=== PATIENT | male | born 1995 | race Caucasian/White ===

== ENCOUNTER 2017-11-27 14:12 | Inpatient (IN) | payer BC, OTHER ==
--- NOTE | 2017-11-27 14:32 | EDPHY ---
H & P Stated Complaint: M1 Time Seen by Provider: 11/27/17 14:31 - Medical/Surgical History Hx Asthma: No Hx Chronic Respiratory Disease: No Hx Diabetes: No Hx Cardiac Disease: No Hx Renal Disease: No Hx Cirrhosis: No Hx Alcoholism: No Hx HIV/AIDS: No Hx Splenectomy or Spleen Trauma: No Other PMH: denies - Social History Smoking Status: Never smoked Constitutional: Initial Vital Signs Temperature (C) 36.7 C 11/27/17 14:15 Heart Rate 120 H 11/27/17 14:15 Respiratory Rate 18 11/27/17 14:15 Blood Pressure 147/116 H 11/27/17 14:15 O2 Sat (%) 97 11/27/17 14:15 O2 Delivery Mode Room Air Allergies/Adverse Reactions: No Known Allergies Allergy (Unverified 11/27/17 14:15) Home Medications: Medication Instructions Recorded NK [No Known Home Meds] 06/22/14 Medical Decision Making ED Course/Re-evaluation: CHIEF COMPLAINT: Psychiatric evaluation HISTORY OF PRESENT ILLNESS: must have 4 elements: Location, Quality, Severity , Duration, Timing, Context, Modifying Factors, Associated Signs and Symptoms REVIEW OF SYSTEMS: A 10 point review of systems was performed and is negative with the exception of the elements mentioned in the history of present illness. PHYSICAL EXAM: General Appearance: Alert, well hydrated, appropriate, and non-toxic appearing. Head: Atraumatic without scalp tenderness or obvious injury Eyes: Pupils equal, round, reactive to light and accommodation, EOMI, no trauma , no injection. Ears: Clear bilaterally, no perforation, normal landmarks Nose: Atraumatic, no rhinorrhea, clear. Throat: There is no erythema or exudates, no lesions, normal tonsils, mucus membranes moist. Neck: Supple, 2+ carotid upstroke, nontender, no lymphadenopathy. Respiratory: No retractions, no distress, no wheezes, and no accessory muscle use. Lungs are clear to auscultation bilaterally. Cardiovascular: Regular rate and rhythm, no murmurs, rubs, or gallops. Bilateral carotid, radial, dorsalis pedis, and posterior tibial pulses intact. Good capillary refill all extremities. Gastrointestinal: Abdomen is soft, nontender, non-distended, no masses, no rebound, no guarding, no peritoneal signs. Musculoskeletal: Normal active ROM of all extremities, atraumatic. Neurological: Alert, appropriate, and interactive. The patient has normal DTRs and non-focal cranial nerves, motor, sensory, and cerebellar exam. Skin: No rashes, good turgor, no nodules on palpation. Past medical history: Past surgical history: Family history: Social history: DIFFERENTIAL DIAGNOSIS: The differential diagnosis for the patient's depression included but was not limited to functional and major depression, situational depression, medication side effect, drugs, and alcohol abuse. MEDICAL DECISION MAKING: Patient is in no acute distress and is hemodynamically stable. We are awaiting psychiatric team's evaluation. Patient has known history of psychiatric disorders and is here for evaluation. Departure - Departure Referrals: Patient,NotPresent [Primary Care Provider] - As per Instructions
--- NOTE | 2017-11-27 14:50 | EDPHY ---
H & P Smoking Status: Never smoked Time Seen by Provider: 11/27/17 14:31 HPI/ROS: CHIEF COMPLAINT: M1 hold HISTORY OF PRESENT ILLNESS: 22-year-old male presents to the emergency department on M1 hold with [facility] after making suicidal statements on his Instagram account. Patient states that he has does not feel suicidal or homicidal. He denies substance abuse. He has previously had a problem with alcohol. Denies recent alcohol use. He denies auditory or visual hallucinations. His mom has been with them over the last week during spring in states that he has had very erratically behavior. He has not made any suicidal statements to her. His roommates also think that he is acting erratic. They are the ones that called police and he was placed on a hold and brought to the emergency department for evaluation. He denies any pain in his chest or difficulty breathing. He denies a headache. No reported trauma. No history of mental illness with the exception of anxiety. REVIEW OF SYSTEMS: Constitutional: No fever, no chills. Eyes: No double or blurry vision. ENT: No sore throat. Respiratory: No cough, no shortness of breath. Cardiac: No chest pain. Gastrointestinal: No abdominal pain, vomiting or diarrhea. Genitourinary: No dysuria. Musculoskeletal: No neck or back pain. Skin: No rashes. Neurological: No headache. (Brianna Rojocody Rosenbaum) Past Medical/Surgical History: Substance abuse, anxiety (Kayla Rojo) Social History: [employer] student from [place] (Kayla Rojo) Physical Exam: General Appearance: Alert, anxious. 147/116, heart rate 120, rapid speech. Eyes: Pupils equal and round. Extraocular motions are all intact. ENT: Mouth: Mucous membranes moist. Respiratory: No wheezing, rhonchi, or rales, lungs are clear to auscultation. Cardiovascular: Regular rate and rhythm. Tachycardia. Gastrointestinal: Abdomen is soft and nontender, no masses, no rebound or guarding, bowel sounds normal. Neurological: Alert and oriented x 3, cranial nerves II through XII grossly intact Skin: Warm and dry, no rashes. Musculoskeletal: Nontender to palpate along the cervical, thoracic or lumbar spine. Neck is supple. Extremities: Full range of motion and no peripheral edema. Psychiatric: Patient is oriented X 3, there is no agitation. (Kayla Rojo) Constitutional: Initial Vital Signs Temperature (C) 36.7 C 11/27/17 14:15 Heart Rate 120 H 11/27/17 14:15 Respiratory Rate 18 11/27/17 14:15 Blood Pressure 147/116 H 11/27/17 14:15 O2 Sat (%) 97 11/27/17 14:15 O2 Delivery Mode Room Air Allergies/Adverse Reactions: No Known Allergies Allergy (Verified 11/27/17 14:46) Home Medications: Medication Instructions Recorded NK [No Known Home Meds] 06/22/14 Medical Decision Making ED Course/Re-evaluation: I spoke with the patient's mother, Markus Pisano [phone], who arrived in the emergency department. She states that he has had a retic behavior over this last week. He has not been sleeping for several days. Laboratory studies are pending. Patient is awaiting mental health evaluation. ( Kayla Rojo) Differential Diagnosis: Depression including functional and major depression, situational depression, medication side effect, drugs and alcohol abuse. Altered mental status including but not limited to hypoglycemia, infectious process, electrolyte abnormality, head injury and intoxicants. (Kayla Rojo) Other Provider: At approximately 1840, patient began screaming loudly and verbally threatening staff with violent body movements. I ordered 10mg haldol, 2mg ativan IM, which was administered. On re-evaluation approximately 20 minutes later, patient much more calm, sleepy, airway patent. Patient accepted for admission to [facility] by Dr. Murillo. (Brandon Mckenna) Care Turn Over: Care will be turned over to Dr. Brandon Mckenna for disposition and plan at shift change, 5:00 p.m.. (Kayla Rojo) - Data Points Laboratory Results: Laboratory Results 11/27/17 14:53 11/27/17 14:53 11/27/17 11/27/17 11/27/17 15:45 14:53 14:53 WBC 9.75 10^3/uL H 10^3/uL (3.80-9.50) RBC 5.27 10^6/uL 10^6/uL (4.40-6.38) Hgb 16.5 g/dL g/dL (13.7-17.5) Hct 46.8 % % (40.0-51.0) MCV 88.8 fL fL (81.5-99.8) MCH 31.3 pg pg (27.9-34.1) MCHC 35.3 g/dL g/dL (32.4-36.7) RDW 11.6 % % (11.5-15.2) Plt Count 295 10^3/uL 10^3/uL (150-400) MPV 9.7 fL fL (8.7-11.7) Neut % (Auto) 77.0 % H % (39.3-74.2) Lymph % (Auto) 13.1 % L % (15.0-45.0) Cascade % (Auto) 8.8 % % (4.5-13.0) Eos % (Auto) 0.2 % L % (0.6-7.6) Baso % (Auto) 0.5 % % (0.3-1.7) Nucleat RBC Rel Count 0.0 % % (0.0-0.2) Absolute Neuts (auto) 7.50 10^3/uL H 10^3/uL (1.70-6.50) Absolute Lymphs (auto) 1.28 10^3/uL 10^3/uL (1.00-3.00) Absolute Monos (auto) 0.86 10^3/uL H 10^3/uL (0.30-0.80) Absolute Eos (auto) 0.02 10^3/uL L 10^3/uL (0.03-0.40) Absolute Basos (auto) 0.05 10^3/uL 10^3/uL (0.02-0.10) Absolute Nucleated RBC 0.00 10^3/uL 10^3/uL (0-0.01) Immature Gran % 0.4 % % (0.0-1.1) Immature Gran # 0.04 10^3/uL 10^3/uL (0.00-0.10) Sodium 139 mEq/L mEq/L (135-145) Potassium 4.3 mEq/L mEq/L (3.5-5.2) Chloride 103 mEq/L mEq/L (97-110) Carbon Dioxide 25 mEq/l mEq/l (22-31) Anion Gap 11 mEq/L mEq/L (8-16) BUN 16 mg/dL mg/dL (7-23) Creatinine 1.1 mg/dL mg/dL (0.7-1.3) Estimated GFR > 60 Glucose 97 mg/dL mg/dL (70-100) Calcium 9.4 mg/dL mg/dL (8.5-10.4) TSH 1.130 uIU/mL uIU/mL (0.465-4.680) Urine Opiates Screen NEGATIVE (NEGATIVE) Urine Barbiturates NEGATIVE (NEGATIVE) Ur Phencyclidine Scrn NEGATIVE (NEGATIVE) Ur Amphetamine Screen NEGATIVE (NEGATIVE) U Benzodiazepines Scrn NEGATIVE (NEGATIVE) Urine Cocaine Screen NEGATIVE (NEGATIVE) U Marijuana (THC) Screen NON-NEGATIVE H (NEGATIVE) Ethyl Alcohol < 10 mg/dL mg/dL (0-10) Medications Given: Discontinued Medications Haloperidol Lactate (Haldol Injection) 10 mg IM EDNOW ONE Stop: 11/27/17 18:51 Last Admin: 11/27/17 18:56 Dose: 10 mg Lorazepam (Ativan) 1 mg PO EDNOW ONE Stop: 11/27/17 16:59 Last Admin: 11/27/17 17:06 Dose: 1 mg Lorazepam (Ativan Injection) 1 mg IM EDNOW ONE Stop: 11/27/17 18:51 Last Admin: 11/27/17 18:57 Dose: 1 mg Departure - Departure Disposition: [facility] IP Clinical Impression: Danielle, Altered mental status Condition: Good Referrals: Patient,NotPresent [Primary Care Provider] - As per Instructions
[2017-11-27 15:01] LABS: PLATELET COUNT 295 10^3/uL (150-400)
[2017-11-27] MEDS ORDERED: LORazepam 1 MG TAB PO ONE (16:58)
[2017-11-27] MEDS ORDERED: HALOPERIDOL LACT 5 MG/ML INJ ONE (18:43)
[2017-11-27] MEDS ORDERED: OLANZapine 10 MG/2 ML VIAL ONE (18:43)
[2017-11-27] MEDS ORDERED: LORazepam 2 MG/ML INJ ONE (18:44)
[2017-11-27] MEDS ORDERED: HALOPERIDOL LACT 5 MG/ML INJ IM ONE (18:50)
[2017-11-27] MEDS ORDERED: LORazepam 2 MG/ML INJ IM ONE (18:50)
[2017-11-27] MEDS ORDERED: ACETAMINOPHEN 325 MG TAB PO PRN (22:53)
[2017-11-27] MEDS ORDERED: MAG HYDROX/AL HYDROX/SIMETH 30 ML UDCUP PO PRN (22:53)
[2017-11-27] MEDS ORDERED: MAGNESIUM HYDROXIDE 30 ML UDCUP PO PRN (22:53)
[2017-11-27] MEDS ORDERED: NICOTINE POLACRILEX 2 MG GUM B PRN (22:53)
--- NOTE | 2017-11-28 11:22 | BAPA ---
[f rep st] ADMISSION PSYCHIATRIC ASSESSMENT DATE OF SERVICE: 11/28/2017 REASON FOR ADMISSION: Patient is a 22-year-old male with no previous psychiatric history w darlyn was brought in by police on an M1 hold due to agitation, insomnia, grandiosity, personality change , and some suicidal statements. Patient's roommate called the police due to concern for the patient' s behavior and the personality changes. He had been "ranting" on social media including Facebook and [employer] attacking friends and acting strangely. He stated that he had numerous job offers and arlette t he was essentially better than everyone and was "moving on." He also said in Instagram that had so me vague statement about suicidal thoughts, though the specifics were not given. The police placed vy courtney on an M1 hold and brought him to the emergency department. In the emergency department, he contin ued to appear disorganized, grandiose, pressured, and receive Zyprexa. He then calmed and slept. He gave a history of not sleeping well for several days prior to admission, staying up all night writin g on social media. He indicated he was going to drop out of college because of "all of the job offer s" and quit his job because "something better came along." When I talk with him today, he states arlette t he has no history of psychiatric problems, that he is "just really tired." He is lying in bed with his eyes closed, refuses to communicate much, stating that he is "told my story 8 times. I'm not te lling it again." He answers a few questions initially and then quits communicating. Information in this report is obtained primarily from the [facility] report in the record. PAST PSYCHIATRIC HISTORY: Patient was apparently at the [facility] progr am for two weeks in October of 2016. This apparently is primarily for marijuana and alcohol. He was p rescribed Seroquel there, which may have been for sleep. He has had no other psychiatric treatments. It does not appear that he continued to take the Seroquel. He denies any history of suicide attemp ts. He does not have any outpatient mental health providers. ALLERGIES: No known medical allergies. CURRENT MEDICINES: None. PAST MEDICAL HISTORY: Noncontributory. SOCIAL HISTORY: The patient is a senior at the [employer] in [place]. He lives in an apartment off campus with several roommates. His parents live in [place] and are his prim daksha supports. 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 He has no known history of any legal problems or aggressive behaviors. SUBSTANCE ABUSE HISTORY: Patient states he drinks several times a week and smokes marijuana on a diamond ly basis. He is not willing to discuss the extent of his substance use with me at this time. FAMILY HISTORY: Patient states is noncontributory. ADMISSION LABORATORY: CBC shows a white count up at 9.75 with a neutrophil percentage up at 77. Ser um chemistries are normal. TSH is normal at 1.13. Urine drug screen is positive for marijuana. MENTAL STATUS EXAMINATION: Reveals an unkempt male lying in a hospital bed. He awakens an d acknowledges me, maintaining eye contact, but then lays back down and closes his eyes. He is somew hat hostile and guarded, refusing to answer most of my questions and stating he does not want to be i nterviewed at this time. His thought process appears to be linear though abbreviated. His thought c ontent reveals possible paranoia and some recent grandiosity. He denies any hallucinations. He refu ses to participate in tests of orientation or memory, though he appears to be oriented, knowing he is in a psychiatric facility. He refuses to answer questions regarding suicidal, homicidal, or violent thoughts, though has not demonstrated any aggressive behaviors. He told the staff in the emergency department that he did not make any statements regarding suicide as his roommates said he did. His i ntellect is presumed to be at least average as evidenced by his educational history. His insight and judgment appear to be poor at this time. IMPRESSION: Possible bipolar disorder, most recent episode manic severe with psychosis versus substa nce induced andrea. Cannabis use disorder, severe interpersonal conflicts, possible academic stress. Patient is a 22-year-old male who presents with a picture of andrea with psychosis. It is u nclear whether this is due to the heavy cannabis use or exists on its own. PLAN: 1. Admit to behavior health services inpatient unit on an M1 hold. 2. Observe the patient for now with p.r.n. Zyprexa for any agitation or andrea. Patient states he is not interested in scheduled medications at this time. Hopefully, if this is primarily substance ind uced, him sleeping and receiving intermittent doses of Zyprexa will be adequate to clear. If not, we will consider scheduled Zyprexa that may require a court order. 3. Will monitor for any aggressive behaviors. 4. Estimated length of stay is 5-7 days. /[id number]/MODL
[2017-11-28] MEDS: OLANZapine DISINTEGR 10 MG TAB PO PRN (15:46)
--- NOTE | 2017-11-28 19:44 | BCON ---
[f rep st] BEHAVIORAL HEALTH CONSULTATION INTERNAL MEDICINE CONSULTATION. DATE OF CONSULTATION: 11/28/2017 REFERRING PHYSICIAN: Dillan Murillo MD REASON FOR REFERRAL: Medical clearance for inpatient behavioral health stay. HISTORY OF PRESENT ILLNESS: This patient came to the [facility], brought by police on an M1 hold after making suicidal statements on his Instagram account. He was found to be manic and was admitted for further psychiatric care. He currently complains of feeling tired. He otherwise denies any acute medical issues. PAST MEDICAL HISTORY: He denies any history of medical illnesses. PAST SURGICAL HISTORY: He has not had any surgeries. MEDICATIONS: He was not taking any medications. SOCIAL HISTORY: He lives with roommates. 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, studying computer science. He uses occasional alcohol, regular marijuana and occasional nicotine through a non cigarette device. FAMILY HISTORY: Noncontributory. REVIEW OF SYSTEMS: He admits to thirst and feeling tired. Otherwise, a 10 point review of systems is negative. PHYSICAL EXAM: VITAL SIGNS: Blood pressure is 127/64, heart rate was 69 at 6 o 'clock this morning, but he is currently tachycardic. Respiratory rate was 14. Oxygen saturation was 96% on room air. Temperature was 36.3 degrees centigrade. His weight is 90.7 kg for a body mass index of 25. GENERAL: This is a well-nourished, well-developed man, appears his chronologic age, cooperative and in no acute distress HEENT: Extraocular movements are intact. Pupils are equal, round, reactive to light. Mucous membranes are moist. Dentition is in good condition. NECK: Supple. HEART: There is a regular rate and rhythm with no murmurs, rubs, or gallops. He is tachycardic. LUNGS: Clear to auscultation bilaterally. ABDOMEN: Benign. EXTREMITIES: There is no cyanosis, clubbing, or edema. NEUROLOGIC: He is alert and oriented x3. Cranial nerves 2-12 are grossly intact. There is no focal weakness. Sensation is intact to light touch, and gait is within normal limits. LABORATORY STUDIES: From the emergency department: CBC revealed a slightly high white blood cell count at 9.75. There was a predominance of neutrophils at 7.5, but there was no left shift. Serum chemistry revealed normal renal function, electrolytes and TSH. Toxicology screen in the serum was negative for ethyl alcohol, and in the urine was non-negative for marijuana, but negative for other substances of abuse. ASSESSMENT/RECOMMENDATIONS: Tachycardia, possible dehydration. Encouraged to increase fluid intake and advised continued regular determination of his vital signs. If he remains tachycardic, further evaluation would be indicated. I see no medical contraindications to this patient's continued stay on the inpatient behavioral health unit or to any psychiatric medications or procedures. Thank you very much for including me in the care of this patient, and please do not hesitate to contact me or the hospitalist service should there be a need for further medical evaluation. /[id number]/MODL MTDD
[2017-11-29] MEDS: LORazepam 0.5 MG TAB PO PRN ×2 (04:47→12:23)
[2017-11-29] MEDS: OLANZapine DISINTEGR 10 MG TAB PO PRN ×2 (04:47→12:23)
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
[2017-11-29] MEDS ORDERED: OLANZapine DISINTEGR 10 MG TAB PO SCH (21:00)
[2017-11-30 06:21] VITALS: BP 140/65; PULSE 92; RESP 16; TEMP 98.1; O2SAT 98
[2017-11-30] MEDS: OLANZapine DISINTEGR 10 MG TAB PO PRN (09:23)
[2017-11-30] MEDS: LORazepam 0.5 MG TAB PO PRN (09:23)
--- NOTE | 2017-11-30 13:43 | BDS ---
[f rep st] BEHAVIORAL HEALTH DISCHARGE SUMMARY REASON FOR ADMISSION: Patient is a 22-year-old male who was admitted from the emergency department after having been brought in by police due to a behavioral change and apparent andrea. His roommate had become concerned because he was acting strangely and had been writing numerous rants on social media. The police were called, and they brought him to the emergency department , where he was evaluated and felt to meet criteria for his M1 hold and admitted to the Behavioral Services inpatient unit. A full description of the events preceding admission can be found in his admission history dated 11/28/2017. ADMITTING DIAGNOSES: Possible bipolar disorder, most recent episode manic, severe, with psychosis versus substance-induced andrea. ADMITTING PHYSICAL EXAMINATION: Performed by Dr. Didier Gonzalez reveals no acute physical findings. ADMISSION LABORATORY: CBC showed a white count slightly up at 9.75, otherwise normal. Serum chemistries were normal. TSH was normal at 1.13. The urine drug screen is positive for marijuana. Alcohol is less than detectable. HOSPITAL COURSE: Patient was admitted to the [facility] inpatient unit on an M1 hold. He received some Zyprexa in the emergency department and then slept for quite a while the first night of admission. When I saw him, he had already been evaluated by several other people that morning, and he was rather irritable and stated he did not want to provide further information because he told his story numerous times already. I was able to connect with him later in the day, and he was more pleasant. He was grandiose, however, stating that people were jealous of him because of his abilities on the Internet and his persuasive abilities. He stated prior to admission that he was going to quit his job and quit school because he had multiple opportunities that seem to be grandiose and unrealistic. He referred to this but never specifically stated anything. The patient was given Zyprexa p.r.n. and then as a scheduled bedtime medication, and he stated he felt this really helped him. He stated it helped slow down his thinking, and by the second full day of admission, he stated that he felt much better. He stated his thoughts were clearer and that he realized that his thinking had not been good. He recanted all of the grandiose thoughts, stating that he needed to get back to school and graduate and go get a real job. It is unclear the influence that marijuana had on the acute presentation, but the combination of the sleep and the Zyprexa seemed to have broken the manic symptoms very quickly. On the day of discharge, the patient was interviewed again and was calm and cooperative. He participated in all groups and displayed normal levels of activity and behavior. He had no outward signs of andrea, including normal thought process, normal speech, normal activity, and no evidence of any grandiosity or other delusions. His affect was stable, though he did become irritable when talking to his mother on the phone as he stated she was "triggering" because he believes she is "too controlling and just won't let go. " This was in reference to his decision to leave the hospital at the expiration of his M1 hold rather than participating for another day or so as I had requested. He stated he wanted to get out of the hospital to return home so he could make sure that his academic interests were taken care of. I did not believe he met criteria for certification as he was showing no evidence of andrea or psychosis and was calm, cooperative, and demonstrating normal social interactions. He was irritable with his mother on the phone, but this did not carry over to others in the milieu and did not appear to be extreme or unreasonable. I was able to talk with him several times during the morning of the day of his discharge, and he stated that he wanted to go back home, connect with [facility], connect with Dr. Jeff Mchugh to make sure his classes were taken care of, and that he wanted to fill the Zyprexa prescription and continue to take it at bedtime. He stated that he was happy to follow up with a psychiatrist at [facility] to prescribe the medication as, again, he states he believes it helps him. I discussed with him the necessity of not drinking or using any marijuana, and he is agreeable to this. CONDITION ON DISCHARGE: Stable. His affect was euthymic, stable and appropriate. His thought process was linear and goal directed. His thought content revealed no evidence of psychosis. He denied any thoughts of suicide, homicide, or violence. DISCHARGE MEDICATIONS: Zyprexa 15 mg p.o. q.h.s. DISPOSITION: Patient left the hospital of his own recognizance to catch an Uber ride back to his apartment. FOLLOWUP: With the [facility] as scheduled by the rn intensive care unit at the time of discharge. Patient was given written notification of the dates and times of these appointments. The patient was discharged at the expiration of his M1 hold. Patient's attitude was positive and forward thinking. Patient did not have Advance Directives filed in the chart, though he was a full code throughout his stay. There were no pending labs or studies at the time of discharge. /[id number]/[id number] MTDD
== END 2017-11-30 12:45 | disposition home or self-care (01) | DRG 885 ==
LOC: EEVIPCON 14:12 → BBEH 22:25
PROVIDERS: ADMIT Psychiatry & Neurology Psychiatry; ATTEND Psychiatry & Neurology Psychiatry
DX: F31.2 Bipolar disorder, current episode manic severe with psychotic features (principal); E86.0 Dehydration; F12.959 Cannabis use, unspecified with psychotic disorder, unspecified
CPT/HCPCS: 80305; G0480; J1630; J2060